=== PATIENT | female | born 1990 | race African-American/Black ===

== ENCOUNTER 2016-10-16 00:12 | Emergency (ER) | payer SELFPAY ==
[~2016-10-16] VITALS: Ht 152.4 cm; Wt 90.0 kg
[2016-10-16 00:14] VITALS: BP 168/102; PULSE 76; RESP 16; TEMP 98.5; O2SAT 98
--- NOTE | 2016-10-16 00:44 | PD ---
HPI Chief Complaint: Laceration/Skin Injury Time Seen by Provider: 00:44 Travel History International Travel<30 days: No Contact w/Intl Traveler<30days: No Traveled to known affect area: No History of Present Illness HPI 25 year-old female presents to the emergency department for evaluation of injury sustained to the right second digit. Patient states her finger got smashed between 2 bowling balls that resulted in a laceration on the pad of the distal right second digit. Patient reports significant pain at the site. It is throbbing and constant. Is up-to-date on her tetanus vaccination. She has no symptoms to report. [facility] Past Medical History Medical History: Denies Significant Hx ?: Not LMP: LAST WK Social History Alcohol Use: No Tobacco Use: No Substance Use: No Allergies-Medications (Allergen,Severity, Reaction): Coded Allergies: No Known Allergies (Unverified , 10/16/16) Reported Meds & Prescriptions Reported Meds & Active Scripts Active Ultram (Tramadol HCl) 50 Mg Tab 50 Mg PO Q6H PRN Ibuprofen 800 Mg Tab 800 Mg PO Q8H PRN Keflex (Cephalexin) 500 Mg Cap 500 Mg PO Q6H 5 Days Review of Systems Except as stated in HPI: all other systems reviewed are Neg Physical Exam Narrative GENERAL: Well-nourished, well-developed female patient, ambulatory no acute distress SKIN: Warm and dry. 1-1/2 cm laceration on the pad of the right second digit. Bleeding is controlled. HEAD: Normocephalic. Atraumatic EYES: No scleral icterus. No injection or drainage. NECK: Supple, trachea midline. No JVD or lymphadenopathy. CARDIOVASCULAR: Regular rate and rhythm without murmurs, gallops, or rubs. RESPIRATORY: Breath sounds equal bilaterally. No accessory muscle use. MUSCULOSKELETAL: No cyanosis, or edema. Sensation intact distal affected digit. Cap refill within normal limits. Data Data Last Documented VS Vital Signs Date Time Temp Pulse Resp B/P Pulse Ox O2 Delivery O2 Flow Rate FiO2 10/16/16 00:14 98.5 76 16 168/102 98 Orders Finger (Peh5vtl) (10/16/16 ) Lidocaine 2% Inj (Xylocaine 2% Inj) (10/16/16 00:45) Cephalexin (Keflex) (10/16/16 02:15) Ibuprofen (Motrin) (10/16/16 02:15) Splint Or Brace Apply/Monitor (10/16/16 02:07) Finger Splint (10/16/16 ) MDM Medical Decision Making Medical Screen Exam Complete: Yes Emergency Medical Condition: Yes Medical Record Reviewed: Yes Differential Diagnosis Laceration superficial versus deep versus open fracture versus avulsion versus abrasion Narrative Course 25-year-old female presents to emergency brought in for evaluation a laceration sustained to the distal right second digit following a crush injury. Polishes removed from the nail to ensure no injury and or the nail. Laceration is on the palmar surface of the finger and does not extend to the dorsal side. X-ray imaging shows a comminuted fracture of the distal tuft. Wound is cleansed and approximated. Patient started on oral antibiotics. Fingers placed in a splint. Encouraged follow-up with hand specialist. She agrees to return immediately with any acute worsening of symptoms. Diagnosis Primary Impression: Open fracture of tuft of distal phalanx of finger Qualified Code: S62.639B - Open fracture of tuft of distal phalanx of finger, initial encounter Referrals: Hand Surgeon Primary Care Physician Patient Instructions: Finger Fracture (ED), General Instructions Departure Forms: Tests/Procedures, Work Release Enter return to work date: Oct 17, 2016 Special Instructions: Pt must keep finger covered while working. Avoid dish water and other activities where finger will become saturated Additional Instructions: Wash the wound daily Make sure it is completely dry before applying a dressing Splint for support and comfort Elevate to reduce pain and swelling Ice to the affected area may also help to reduce pain Follow-up with primary care provider Seek hand specialty evaluation Sutures are to be removed in 10 days. This can be done in the Emergency department or a primary care provider's office Return immediately to the emergency department with any acute worsening symptoms Med/Other Pt SpecificInfo: Prescription(s) given Scripts Tramadol (Ultram)50 Mg Tab50 Mg PO Q6H PRN (PAIN GREATER THAN 6) #15 TAB Ref 0 Prov:Yamilet Daniel MD 10/16/16 Ibuprofen 800 Mg Ody853 Mg PO Q8H PRN (Pain/Inflammation) #30 TAB Ref 0 Prov:Jyoti Medina 10/16/16 Cephalexin (Keflex)500 Mg [id number] Mg PO Q6H 5 Days Ref 0 Prov:Jyoti Medina 10/16/16 Disposition: 01 DISCHARGE HOME Condition: Stable Jyoti Medina Oct 16, 2016 00:44
[2016-10-16] MEDS ORDERED: LIDOCAINE HCL 2% 20 ML VIAL INFIL ONE (00:45)
--- NOTE | 2016-10-16 01:29 | RADRPT ---
EXAM DATE/TIME: 10/16/2016 01:11 [facility] COMPARISON: No previous studies available for comparison. INDICATIONS : Patient smashed finger between bowling balls tonight. MEDICAL HISTORY : None. SURGICAL HISTORY : None. ENCOUNTER: Initial ACUITY: 1 day PAIN SCORE: 6/10 LOCATION: Right Second digit. FINDINGS: Bone density is normal. Joint space widths are intact. There is a comminuted fracture of the second d istal phalangeal tuft. CONCLUSION: Distal phalangeal tuft comminuted fracture second digit. Jayden Soriano MD on October 16, 2016 at 1:27 Board Certified Radiologist. This report was verified electronically.
[2016-10-16] MEDS ORDERED: CEPHALEXIN MONOHYDRATE 500 MG CAP PO ONE (02:15)
[2016-10-16] MEDS ORDERED: IBUPROFEN 800 MG TAB PO ONE (02:15)
[2016-10-16] MEDS ORDERED: CEPH-460 PO (02:23)
[2016-10-16] MEDS ORDERED: IBUP800T23 PO (02:23)
[2016-10-16] MEDS ORDERED: ULTR50TA5 PO (02:24)
== END 2016-10-16 02:59 | disposition home or self-care (01) ==
LOC: NEPB 00:12
DX: S62.630B Displaced fracture of distal phalanx of right index finger, initial encounter for open fracture (principal); W23.0XXA Caught, crushed, jammed, or pinched between moving objects, initial encounter; Y93.54 Activity, bowling; Y92.39 Other specified sports and athletic area as the place of occurrence of the external cause
CPT/HCPCS: 12001; 73140

== ENCOUNTER 2017-09-06 17:37 | Emergency (ER) | payer MEDICAID ==
[~2017-09-06] VITALS: Ht 152.4 cm; Wt 92.2 kg
[~2017-09-06 17:37] MED LIST: CEPH-460 PO; IBUP1TAB7 PO; SE-NTAB3 PO; TRAM50 PO
[2017-09-06 17:39] VITALS: BP 182/86; PULSE 82; RESP 14; TEMP 98.6; O2SAT 100
--- NOTE | 2017-09-06 18:06 | PD ---
HPI Chief Complaint: Related Problem Time Seen by Provider: 18:01 Travel History International Travel<30 days: No Contact w/Intl Traveler<30days: No Traveled to known affect area: No History of Present Illness HPI 26-year-old Afro-[place] female who is 5-6 weeks , transferred here from [place] ED [place] [address]. Patient was found to have a urinary tract infection is being treated with Keflex by mouth. Her other labs are unremarkable. She needs a Rh factor, and ultrasound. She is having no complaints of pain. She has had some spotty vaginal bleeding. Please see Dr. Leon is note from [place] visit today. PFSH Past Medical History Diminished Hearing: No ?: LMP: 07/26/17 : 2 Miscarriage: 1 Social History Alcohol Use: No Tobacco Use: No Substance Use: No Allergies-Medications (Allergen,Severity, Reaction): Coded Allergies: No Known Allergies (Unverified Adverse Reaction, Unknown, 09/06/17) Reported Meds & Prescriptions Reported Meds & Active Scripts Active Keflex (Cephalexin) 500 Mg Cap 500 Mg PO Q8H Reported Se- 19 29-1 mg ( Vit W/ Docusate-Fe Fu) 29 Mg Iron-1 Mg-25 Mg Tab 1 Tab PO DAILY Review of Systems Except as stated in HPI: all other systems reviewed are Neg General / Constitutional: No: Fever Eyes: No: Visual changes HENT: No: Headaches Cardiovascular: No: Chest Pain or Discomfort Respiratory: No: Shortness of Breath Gastrointestinal: No: Abdominal Pain Genitourinary: Positive: Vaginal Bleeding, No: Dysuria Musculoskeletal: No: Pain Skin: No Rash Neurologic: No: Weakness Psychiatric: No: Depression Endocrine: No: Polydipsia Hematologic/Lymphatic: No: Easy Bruising Physical Exam Narrative GENERAL: Patient appears in no acute distress. SKIN: Warm and dry. Color. Normal turgor. HEAD: Atraumatic. Normocephalic. EYES: Pupils equal and round. No scleral icterus. No injection or drainage. ENT: No nasal bleeding or discharge. Mucous membranes pink and moist. NECK: Trachea midline. No JVD. CARDIOVASCULAR: Regular rate and rhythm. RESPIRATORY: No accessory muscle use. Clear to auscultation. Breath sounds equal bilaterally. GASTROINTESTINAL: Abdomen soft, non-tender, nondistended. Hepatic and splenic margins not palpable. No significant pain with palpation. MUSCULOSKELETAL: Extremities without clubbing, cyanosis, or edema. No obvious deformities. NEUROLOGICAL: Awake and alert. No obvious cranial nerve deficits. Motor grossly within normal limits. Five out of 5 muscle strength in the arms and legs. Normal speech. PSYCHIATRIC: Appropriate mood and affect; insight and judgment normal. Data Data Last Documented VS Vital Signs Date Time Temp Pulse Resp B/P (MAP) Pulse Ox O2 Delivery O2 Flow Rate FiO2 09/06/17 17:57 16 09/06/17 17:39 98.6 82 182/86 (118) 100 Orders Orders Complete Rh (09/06/17 18:07) Us Pelvis (Ques Preg/Ectopic) (09/06/17 ) MDM Medical Decision Making Medical Screen Exam Complete: Yes Emergency Medical Condition: Yes Medical Record Reviewed: Yes Differential Diagnosis Early . Threatened . Urinary tract infection. Narrative Course Patient is medically stable at time of exam. Rh factor and abdominal ultrasound ordered to evaluate . Ultrasound showed viable intrauterine . Patient is estimated at 5-1/2 weeks. Heart tones were 130bpm. 1900 hrs. labs are pending. Final disposition will be determined by Enzo ALBERT. Referrals: [employer] Disposition: DISCHARGE HOME Condition: Stable Leonidas Fuchs Sep 06, 2017 18:06
--- NOTE | 2017-09-06 19:04 | RADRPT ---
EXAM DATE/TIME: 09/06/2017 18:21 [facility] COMPARISON: No previous studies available for comparison. INDICATIONS : Pelvic pain. LAB(S): Beta-hC MEDICAL HISTORY : . SURGICAL HISTORY : Bilateral knee and left ankle surgery. ENCOUNTER: Initial ACUITY: 1 day PAIN SCORE: 0/10 LOCATION: Bilateral pelvis MEASUREMENTS: UTERUS: 9.8 x 6.9 x 5.6 cm ENDOMETRIAL STRIPE: 19 mm RIGHT OVARY: 4.0 x 2.4 x 3.3 cm LEFT OVARY: 3.8 x 2.5 x 2.2 cm FREE FLUID: No CROWN RUMP LENGTH: 0.2 cm = 5 WKS 5 DAYS FHR: 137 BPM FINDINGS: Intrauterine gestational sac is present with pole and heartbeat of 137 beats per minute. There is no free fluid and within the uterus there is a tiny 1 cm cystic area possibly a small degenerated fibroid. CONCLUSION: Viable IUP. Inocencia Smith MD on September 06, 2017 at 19:01 Board Certified Radiologist. This report was verified electronically.
--- NOTE | 2017-09-06 19:50 | PD ---
Physical Exam Date Seen by Provider: Sep 06, 2017 Time Seen by Provider: 19:49 Data Data Last Documented VS Vital Signs Date Time Temp Pulse Resp B/P (MAP) Pulse Ox O2 Delivery O2 Flow Rate FiO2 09/06/17 17:57 16 09/06/17 17:39 98.6 82 182/86 (118) 100 Orders Orders Complete Rh (09/06/17 18:07) Us Pelvis (Ques Preg/Ectopic) (09/06/17 ) Ed Discharge Order (09/06/17 19:47) MDM Medical Record Reviewed: Yes Supervised Visit with RADHA: Yes Interpretation(s) O+ Rh Last 24 hours Impressions Pelvis Ultrasound 09/06/17 0000 Signed Impressions: Service Date/Time: Wednesday, September 06, 2017 18:21 - CONCLUSION: Viable IUP. K. Ian Smith MD Diagnosis Primary Impression: Threatened Additional Impression: UTI (urinary tract infection) Qualified Codes: N30.00 - Acute cystitis without hematuria Referrals: [employer] Patient Instructions: General Instructions, Threatened Miscarriage (ED) Departure Forms: Tests/Procedures Additional Instruction: Rest. Increase fluids. Keflex to complete. Follow-up with OB doctor within next 3-5 days. Return to the ER for any problems Pelvic rest. Med/Other Pt SpecificInfo: No Change to Meds Disposition: 01 DISCHARGE HOME Condition: Stable Enzo Contreras Sep 06, 2017 19:50
== END 2017-09-06 20:08 | disposition home or self-care (01) ==
LOC: NEPD 17:37
DX: O20.0 Threatened abortion (principal); O23.11 Infections of bladder in pregnancy, first trimester; Z3A.01 Less than 8 weeks gestation of pregnancy
CPT/HCPCS: 76700; 80053; 81001; 84702; 85025; 86901; 87077; 87086; 87186; 87210; 87491; 87591; 96360; 99284; J7030

== ENCOUNTER 2017-09-11 01:53 | Emergency (ER) | payer MEDICAID ==
[~2017-09-11] VITALS: Ht 167.6 cm; Wt 91.8 kg
[~2017-09-11 01:53] MED LIST changes: -IBUP1TAB7 PO; -TRAM50 PO
[2017-09-11 01:57] VITALS: BP 154/85; PULSE 86; RESP 16; TEMP 98.6; O2SAT 99
[2017-09-11 02:17] VITALS: BP 111/62; PULSE 74; RESP 18; O2SAT 99
--- NOTE | 2017-09-11 02:22 | PD ---
HPI Chief Complaint: Bleeding Time Seen by Provider: 02:03 Travel History International Travel<30 days: No Contact w/Intl Traveler<30days: No Traveled to known affect area: No History of Present Illness HPI Patient has some vaginal potting brownish discharge bloody on toilet paper. Patient is about 6 weeks . Yesterday she had some left-sided adnexal- like pain. Which is now gone. Patient is worried she is miscarrying. She has miscarried around the same time with prior pregnancies. Pt has no pain currently in the ER , in no apparent distress and no hemorrhage currently. SHe was in our ER for same 09/06 . Pt had U/S showing IUP with yolk sac they measure FHR 137, I will send serial Beta HCG PFSH Past Medical History Diminished Hearing: No Influenza Vaccination: No ?: LMP: 07-26-17 : 2 Miscarriage: 1 Social History Alcohol Use: No Tobacco Use: No Substance Use: No Allergies-Medications (Allergen,Severity, Reaction): Coded Allergies: No Known Allergies (Unverified Adverse Reaction, Unknown, 09/06/17) Reported Meds & Prescriptions Reported Meds & Active Scripts Active Keflex (Cephalexin) 500 Mg Cap 500 Mg PO Q8H Reported Se-Magdi 19 29-1 mg ( Vit W/ Docusate-Fe Fu) 29 Mg Iron-1 Mg-25 Mg Tab 1 Tab PO DAILY Physical Exam Narrative GENERAL: Patient is nontoxic in no distress no active bleeding SKIN: Warm and dry. HEAD: Atraumatic. Normocephalic. EYES: Pupils equal and round. No scleral icterus. No injection or drainage. ENT: No nasal bleeding or discharge. Mucous membranes pink and moist. NECK: Trachea midline. No JVD. CARDIOVASCULAR: Regular rate and rhythm. RESPIRATORY: No accessory muscle use. Clear to auscultation. Breath sounds equal bilaterally. GASTROINTESTINAL: Abdomen soft, non-tender,distended. Hepatic and splenic margins not palpable. POC BEDSIDE SONO I am unable to locate IUP , MUSCULOSKELETAL: Extremities without clubbing, cyanosis, or edema. No obvious deformities. NEUROLOGICAL: Awake and alert. No obvious cranial nerve deficits. Motor grossly within normal limits. Five out of 5 muscle strength in the arms and legs. Normal speech. PSYCHIATRIC: Appropriate mood and affect; insight and judgment normal. Data Data Last Documented VS Vital Signs Date Time Temp Pulse Resp B/P (MAP) Pulse Ox O2 Delivery O2 Flow Rate FiO2 09/11/17 03:58 09/11/17 02:17 74 18 99 Room Air 09/11/17 01:57 98.6 Orders Orders Complete Blood Count With Diff (09/11/17 02:21) Comprehensive Metabolic Panel (09/11/17 02:21) Beta Hcg (Quant/Titer) (09/11/17 02:21) Type And Screen (09/11/17 02:21) Urinalysis - C+S If Indicated (09/11/17 03:03) Ed Discharge Order (09/11/17 03:55) Labs Laboratory Tests Test 09/11/17 02:36 09/11/17 03:00 White Blood Count 13.6 TH/MM3 Red Blood Count 3.93 MIL/MM3 Hemoglobin 11.5 GM/DL Hematocrit 33.7 % Mean Corpuscular Volume 85.8 FL Mean Corpuscular Hemoglobin 29.4 PG Mean Corpuscular Hemoglobin Concent 34.3 % Red Cell Distribution Width 14.2 % Platelet Count 329 TH/MM3 Mean Platelet Volume 8.3 FL Neutrophils (%) (Auto) 60.6 % Lymphocytes (%) (Auto) 31.0 % Monocytes (%) (Auto) 5.5 % Eosinophils (%) (Auto) 2.1 % Basophils (%) (Auto) 0.8 % Neutrophils # (Auto) 8.2 TH/MM3 Lymphocytes # (Auto) 4.2 TH/MM3 Monocytes # (Auto) 0.7 TH/MM3 Eosinophils # (Auto) 0.3 TH/MM3 Basophils # (Auto) 0.1 TH/MM3 CBC Comment DIFF FINAL Differential Comment Blood Urea Nitrogen 10 MG/DL Creatinine 0.75 MG/DL Random Glucose 96 MG/DL Total Protein 8.1 GM/DL Albumin 3.9 GM/DL Calcium Level 9.2 MG/DL Alkaline Phosphatase 61 U/L Aspartate Amino Transf (AST/SGOT) 29 U/L Alanine Aminotransferase (ALT/SGPT) 69 U/L Total Bilirubin 0.2 MG/DL Sodium Level 138 MEQ/L Potassium Level 3.6 MEQ/L Chloride Level 104 MEQ/L Carbon Dioxide Level 24.6 MEQ/L Anion Gap 9 MEQ/L Estimat Glomerular Filtration Rate 113 ML/MIN Human Chorionic Gonadotropin, Quant 05881 MIU/ML Urine Color YELLOW Urine Turbidity HAZY Urine pH 6.5 Urine Specific [place] 1.019 Urine Protein NEG mg/dL Urine Glucose (UA) NEG mg/dL Urine Ketones NEG mg/dL Urine Occult Blood LARGE Urine Nitrite NEG Urine Bilirubin NEG Urine Urobilinogen LESS THAN 2.0 MG/DL Urine Leukocyte Esterase SMALL Urine RBC 13 /hpf Urine WBC 6 /hpf Urine Squamous Epithelial Cells 14 /hpf Urine Transitional Epithelial Cells <1 /hpf Urine Bacteria RARE /hpf Urine Hyaline Casts 1 /lpf Urine Mucus FEW /lpf Microscopic Urinalysis Comment CULT NOT INDICATED MDM Medical Decision Making Medical Screen Exam Complete: Yes Emergency Medical Condition: Yes Differential Diagnosis Early versus threatened AB versus ectopic versus miscarriage in process Narrative Course I checked her beta hCG which has doubled since September 06 it was 15,661 and today it is 31,731 bedside ultrasound done by this [place]. I do not see an intrauterine I review her ultrasound that she had a few days ago which reportedly was heart rate of 137 yolk sac is seen intrauterine is reported and there is a crown-rump length date of 5 weeks and 5 days Diagnosis Primary Impression: Threatened miscarriage Additional Impressions: Threatened miscarriage in early Vaginal bleeding in patient at less than 20 weeks gestation Patient Instructions: General Instructions, Threatened Miscarriage (ED) Disposition: 01 DISCHARGE HOME Condition: Abdirizak Morales MD Sep 11, 2017 02:22
[2017-09-11 02:52] LABS: AUTOMATED NEUTROPHIL # 8.2 TH/MM3 (1.8-7.7); BASOPHIL # 0.1 TH/MM3 (0-0.2); BASOPHIL % 0.8 % (0.0-2.0); EOSINOPHIL # 0.3 TH/MM3 (0-0.4); EOSINOPHIL % 2.1 % (0.0-4.0); HEMATOCRIT 33.7 % (35.0-46.0); HEMOGLOBIN 11.5 GM/DL (11.6-15.3); LYMPHOCYTE # 4.2 TH/MM3 (1.0-4.8); MEAN CELL VOLUME 85.8 FL (80.0-100.0); MEAN CORPUSCULAR HEMOGLOBIN 29.4 PG (27.0-34.0); MEAN CORPUSCULAR HGB CONC 34.3 % (32.0-36.0); MEAN PLATELET VOLUME 8.3 FL (7.0-11.0); MONO % 5.5 % (0.0-8.0); MONOCYTE # 0.7 TH/MM3 (0-0.9); NEUT % 60.6 % (16.0-70.0); PLATELET COUNT 329 TH/MM3 (150-450); RED BLOOD COUNT 3.93 MIL/MM3 (4.00-5.30); RED CELL DISTRIBUTION WIDTH 14.2 % (11.6-17.2); WHITE BLOOD COUNT 13.6 TH/MM3 (4.0-11.0)
[2017-09-11 03:06] LABS: ALBUMIN 3.9 GM/DL (3.4-5.0); ALT (GPT) 69 U/L (10-53); AST (GOT) 29 U/L (15-37); BICARBONATE 24.6 MEQ/L (21.0-32.0); BLOOD UREA NITROGEN 10 MG/DL (7-18); CALCIUM 9.2 MG/DL (8.5-10.1); CHLORIDE 104 MEQ/L (98-107); CREATININE 0.75 MG/DL (0.50-1.00); GLOMERULAR FILTRATION RATE 113 ML/MIN (>89); GLUCOSE,RANDOM 96 MG/DL (74-106); SODIUM (NA) 138 MEQ/L (136-145)
[2017-09-11 03:23] LABS: ALKALINE PHOSPHATASE 61 U/L (45-117); TOTAL BILIRUBIN ADULT 0.2 MG/DL (0.2-1.0); TOTAL PROTEIN 8.1 GM/DL (6.4-8.2)
[2017-09-11 03:34] LABS: BACTERIA, URINE RARE /hpf; BILIRUBIN, URINE NEG (NEG); BLOOD, URINE LARGE (NEG); GLUCOSE,URINE NEG (NEG); HYALINE CAST, URINE 1 /lpf (RARE); KETONE, URINE NEG (NEG); MUCUS URINE FEW /lpf (OCC); NITRITE,URINE NEG (NEG); PH, URINE 6.5 (5.0-8.5); SQUAMOUS EPITHELIAL CELL URINE 14 /hpf (0-5); TRANSITIONAL EPI CELLS, URINE <1 /hpf; URINE COLOR YELLOW (YELLW/STRAW); URINE LEUKOCYTE ESTERASE SMALL (NEG)
== END 2017-09-11 04:32 | disposition home or self-care (01) ==
LOC: NEPC 01:53
DX: O20.0 Threatened abortion (principal); Z3A.20 20 weeks gestation of pregnancy
CPT/HCPCS: 80053; 81001; 84702; 85025; 86850; 86900; 86901; 99283